=== PATIENT | male | born 1970 | race Caucasian/White ===

== ENCOUNTER 2018-04-12 20:50 | Emergency (ER) | payer BC ==
[~2018-04-12] VITALS: Ht 177.8 cm; Wt 102.1 kg
[2018-04-12 21:09] VITALS: BP 131/79
--- NOTE | 2018-04-12 21:38 | ER.PDOC ---
General Chief Complaint: Extremities Stated Complaint: STEPPED ON SCREW Time seen by MD: 21:33 Source: patient Exam Limitations: no limitations History of Present Illness Initial Comments Stepped on a screw Onset: this afternoon Where: home Severity: moderate Modifying Factors: pain on movement Allergies: Uncoded Allergies: ALLERGY MEDICATION (Allergy, Intermediate, Nausea, 04/12/18) UNKNOWN EXACTLY WHICH ALLERGY MEDICATION IT IS. Past Medical History Medical History: no pertinent history Social History Smoking: less than 1 pack/day Alcohol Use: occassionally Drug Use: none Review of Systems Constitutional: no symptoms reported EENTM: no symptoms reported Respiratory: no symptoms reported Cardiovascular: no symptoms reported Gastrointestinal: no symptoms reported Skin: see HPI All Other Systems: Reviewed and Negative Physical Exam General Appearance: Alert, No Apparent Distress Foot: see diagram, tenderness (at puncture wound site with mild ecchymosis) 1 - Puncture wound Ankle: nml inspection, non-tender, nml ROM, no joint swelling, skin intact Gait: normal Neuro: sensation nml, motor nml Vascular: no vascular compromise Tendons: tendon function nml Leg/Knee/Thigh: uninjured above ankle Head/ENT: nml inspection, pharynx nml Neck/Back: nml inspection, non-tender Resp/CVS: no resp distress Abdomen: non-tender, no organomegaly Course Vitals & review Data Vital Sign - Last 24 Hours 04/12/18 04/12/18 04/12/18 21:02 21:02 21:09 Temp 98.0 98.0 98.0 98.0 98.0 98.0 Pulse 89 89 89 Resp 16 16 16 B/P (MAP) 131/79 (96) Pulse Ox 98 98 O2 Delivery Room Air Room Air Departure Time of Disposition: 21:36 Disposition: 01 HOME, SELF-CARE Impression: Primary Impression: Puncture wound Condition: Stable Referrals: PCP,UNKNOWN (PCP) PRIMARY CARE PROVIDER Additional Instructions: Keflex Clean wound area with soap and water and apply Neosporin F/U with your PCP in 2-3 days Duration or Time Spent with Pa: 20 mins ROBERTO CHURCH MD Apr 12, 2018 21:38
[2018-04-12] MEDS ORDERED: BOOSTRIX TDAP IM ONE ×2 (21:43→22:00)
[2018-04-12 21:49] VITALS: BP 131/79
== END 2018-04-12 21:47 | disposition home or self-care (01) ==
LOC: ER 20:50
DX: S91.331A Puncture wound without foreign body, right foot, initial encounter (principal); F17.210 Nicotine dependence, cigarettes, uncomplicated; W22.8XXA Striking against or struck by other objects, initial encounter; Y93.01 Activity, walking, marching and hiking; Y92.098 Other place in other non-institutional residence as the place of occurrence of the external cause; Y99.8 Other external cause status
CPT/HCPCS: 90471; 90715; 99283

== ENCOUNTER 2018-09-16 05:16 | Emergency (ER) | payer BC ==
[~2018-09-16] VITALS: Ht 177.8 cm; Wt 108.9 kg
[2018-09-16 05:19] VITALS: BP 160/97
[2018-09-16] MEDS ORDERED: LACTATED RINGERS 1,000 ML IV STA (05:45)
[2018-09-16] MEDS ORDERED: TORADOL IV STA (05:45)
[2018-09-16] MEDS ORDERED: ZOFRAN IV STA (05:45)
--- NOTE | 2018-09-16 05:49 | ER.PDOC ---
General Chief Complaint: General Complaint Stated Complaint: KIDNEY STONE Time seen by MD: 05:46 Source: patient Exam Limitations: no limitations History of Present Illness Initial Comments Left lower quadrant pain Timing/Duration: 1-3 hours Severity/Quality: moderate, sharpness Radiation: no radiation Associated Symptoms: nausea/vomiting Exacerbated by: nothing Relieved By: nothing Allergies: Uncoded Allergies: ALLERGY MEDICATION (Allergy, Intermediate, Nausea, 04/12/18) UNKNOWN EXACTLY WHICH ALLERGY MEDICATION IT IS. Vital Signs First Vital Signs Date Time Temp Pulse Resp B/P (MAP) Pulse Ox O2 Delivery O2 Flow Rate FiO2 09/16/18 05:19 97.6 71 20 160/97 (118) 98 Room Air 97.6 Last Vital Signs Date Time Temp Pulse Resp B/P (MAP) Pulse Ox O2 Delivery O2 Flow Rate FiO2 09/16/18 05:19 97.6 71 20 98 Room Air 97.6 09/16/18 05:19 160/97 (118) Past Medical History Medical History: other (kidney stones) Social History Smoking: greater than 1 pack/day Alcohol Use: occassionally Drug Use: none Constitutional: no symptoms reported EENTM: no symptoms reported Respiratory: no symptoms reported Cardiovascular: no symptoms reported Gastrointestinal: see HPI Genitourinary: no symptoms reported All Other Systems: Reviewed and Negative Physical Exam General Appearance: No Apparent Distress, WD/WN Neck: Non-Tender, Full Range of Motion, Supple, Normal Inspection Respiratory: chest non-tender, lungs clear, normal breath sounds, no respiratory distress, no accessory muscle use Cardiovascular: Normal Peripheral Pulses, Regular Rate, Rhythm, No Edema, No Gallop, No JVD, No Murmur Gastrointestinal: Normal Bowel Sounds, No Organomegaly, No Pulsatile Mass, Guarding, Tenderness (LLQ) Back: Normal Inspection, No CVA Tenderness, No Vertebral Tenderness Extremities: Normal Range of Motion, Non-Tender, Normal Inspection, No Pedal Edema, No Calf Tenderness, Normal Capillary Refill, Pelvis Stable 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 Bilateral nonobstructing renal stones. Course Duration or Total Time Spent w: 20 mins Vitals & review Data Vital Sign - Last 24 Hours 09/16/18 09/16/18 09/16/18 05:19 05:19 05:19 Temp 97.6 97.6 97.6 97.6 97.6 97.6 Pulse 71 71 71 Resp 20 20 20 B/P (MAP) 160/97 (118) Pulse Ox 98 98 O2 Delivery Room Air Room Air Sepsis Infection Criteria Pres: None O2 Sat by Pulse Oximetry: 98 Departure Time of Disposition: 06:52 Disposition: 01 HOME, SELF-CARE Impression: Primary Impression: Ureteral calculus, left Condition: Improved Referrals: PCP,UNKNOWN (PCP) PRIMARY CARE PROVIDER Additional Instructions: Tylenol #3 Flomax Push fluids F/U with Dr. Long 2-3 days Duration or Time Spent with Pa: 60 mins ROBERTO CHURCH MD Sep 16, 2018 05:49
[2018-09-16] MEDS ORDERED: LACTATED RINGERS 1,000 ML ONE (05:56)
[2018-09-16] MEDS ORDERED: TORADOL ONE (05:57)
[2018-09-16 06:02] LABS: BASOPHIL % 0.4 % (0.0-0.2); EOSINOPHIL # 0.1 10^3/uL (0.0-0.2); EOSINOPHIL % 0.9 % (0.0-5.0); HEMOGLOBIN 15.4 g/dL (13.9-16.3); LYMPHOCYTES % 17.1 % (24.0-44.0); MEAN CELL HGB CONCENTRATION 34.6 g/dL (33-37); MEAN CORP VOLUME 92.5 fL (78-100); MEAN PLATELET VOLUME 11.1 fL (7.8-11.0); MONOCYTES # 0.6 10^3/uL (0.3-0.8); MONOCYTES % 10.5 % (5.0-12.0); NEUTROPHILS % 70.9 % (41.0-85.0); RED CELL DISTRIBUTION WIDTH 12.9 % (11.5-14.5); WHITE BLOOD CELL 5.6 10^3/uL (4.5-11.0)
[2018-09-16 06:17] LABS: CALCIUM 8.5 mg/dL (8.4-10.5); CARBON DIOXIDE 25.4 mmol/L (20.0-32)
[2018-09-16 06:24] LABS: BILIRUBIN,URINE NEGATIVE (NEGATIVE); UROBILINOGEN,URINE NORMAL (NEGATIVE)
[2018-09-16] MEDS ORDERED: DEMEROL ONE (06:30)
[2018-09-16 06:34] LABS: APPEARANCE,URINE CLOUDY (CLEAR); UA COLOR YELLOW (YELLOW)
[2018-09-16] MEDS ORDERED: DEMEROL IV STA (06:34)
[2018-09-16] MEDS ORDERED: ZOFRAN ONE (06:34)
[2018-09-16 06:35] VITALS: BP 144/82
--- NOTE | 2018-09-16 06:36 | DIREP ---
PROCEDURE:CT ABD/PELVIS WITHOUT CONTRAST TECHNIQUE:Axial cuts were obtained from the dome of the diaphragm to the ischial tuberosities. No intravenous contrast was given. The images were viewed at lung and soft tissue settings. Sagittal and coronal reconstructions are provided. COMPARISON:None. INDICATIONS:Left lower quadrant pain hx of kidney stones FINDINGS: LOWER CHEST:The lung bases are clear. LIVER:Normal. BILIARY:Normal. PANCREAS:Normal. SPLEEN:Normal. URINARY TRACT:Obstructing left UVJ stone measuring 2-3 mm. Mild prominence of the left renal collecting system. Bilateral nonobstructing renal stones. ADRENALS:Normal. AORTA/VASCULAR:Normal. RETROPERITONEUM:Normal. BOWEL/MESENTERY:Normal. ABDOMINAL WALL:Right inguinal hernia repair. PELVIS:Normal. BONES:Degenerative changes at L5-S1. OTHER:Normal. CONCLUSION: Obstructing left UVJ stone measuring 2-3 mm. Bilateral nonobstructing renal stones. Dictated by: Jonathan Rivera MD on 09/16/2018 at 06:27 AM
[2018-09-16 07:07] VITALS: BP 119/73
[2018-09-16 07:14] VITALS: BP 119/73
== END 2018-09-16 07:09 | disposition home or self-care (01) ==
LOC: ER 05:16
DX: N20.1 Calculus of ureter (principal); Z87.442 Personal history of urinary calculi
CPT/HCPCS: 36415; 74176; 80053; 81000; 85025; 85610; 85730; 96361; 96374; 96375; 99285; J1885; J2175; J2405; J7120